=== PATIENT | female | born 1960 | race Caucasian/White ===

== ENCOUNTER → 2017-04-23 | Outpatient (CLI) | payer OTHER | LOC: BMCIMAGING 14:10 | PROVIDERS: ATTEND Internal Medicine | DX: Z12.31 Encounter for screening mammogram for malignant neoplasm of breast (principal); Z13.820 Encounter for screening for osteoporosis; M85.80 Other specified disorders of bone density and structure, unspecified site | CPT/HCPCS: G0202 ==

== ENCOUNTER → 2017-05-01 | Outpatient (CLI) | payer OTHER | LOC: BMCIMAGING 10:46 | PROVIDERS: ATTEND Internal Medicine | DX: R92.8 Other abnormal and inconclusive findings on diagnostic imaging of breast (principal) | CPT/HCPCS: G0206 ==